=== PATIENT | female | born 1960 | race Two or more races ===

== ENCOUNTER 2024-07-06 09:07 | Emergency (ER) | payer OTHER, MEDICAID ==
[~2024-07-06] VITALS: Ht 182.9 cm; Wt 98.9 kg
[~2024-07-06 09:07] MED LIST: ASPI81CH43; ATOR10TA; LISI10TA34; METO25TA36
[2024-07-06 09:36] VITALS: BP 175/75; PULSE 72; RESP 16; TEMP 97.8; O2SAT 98
--- NOTE | 2024-07-06 10:08 | ED.PDOC ---
Musculoskeletal HPI Comments A 64 YEAR OLD FEMALE PRESENTS TO THE ED WITH COMPLAINT OF LEFT LEG PAIN AND SWELLING S/P FALL. PATIENT REPORTS THAT LAST WEDNESDAY, SHE HAS TRIPPED AND FELL FORWARD, INJURING HER LEFT LEG AND FOOT IN THE FALL. PATIENT RELAYS THAT SINCE THEN, SHE HAS EXPERIENCING SWELLING, REDNESS, AND PAIN TO HER LEFT LOWER EXTREMITY ALONG WITH NUMBNESS TO THE LEFT FOOT. PATIENT DENIES FEVER, CHILLS, SHORTNESS OF BREATH, CHEST PAIN, ABDOMINAL PAIN, NAUSEA, VOMITING, HEADACHE, OR OTHER COMPLAINTS. NO OTHER SYMPTOMS OR MODIFYING FACTORS AT THIS TIME. Chief Complaint: Lower Extremity Time Seen by MD: 09:47 Primary Care Provider: JASON Reviewed Notes: Nurses Notes, Medications, Allergies Allergies: Coded Allergies: NO KNOWN ALLERGIES (Unverified , 02/25/12) Home Meds Active Scripts Naproxen (Naproxen) 500 Mg Tab, 500 MG PO BID, #30 TAB Prov:WYATT LINDER 07/06/24 Cephalexin Monohydrate (Cephalexin) 500 Mg Cap, 1 CAP PO QID, #40 CAP Prov:WYATT LINDER 07/06/24 Reported Medications Atorvastatin Calcium (Lipitor) 10 Mg Tab, DAILY 02/25/12 Aspirin (Asa) 81 Mg Ch, DAILY 02/25/12 Metoprolol Succinate (Toprol Xl) 25 Mg Tab, DAILY 02/25/12 Lisinopril (Lisinopril) 10 Mg Tab, DAILY 02/25/12 Information Source: Patient Mode of Arrival: Ambulatory Location: Left Extremity Location: Leg Timing: Weeks Prehospital treatment: None Severity: Moderate Able to Move Extremity: Yes Bear Weight: Fully Pain: Moderate Mechanism: Spontaneous Circumstances: Fall Onset of Symptoms: After Trauma Symptoms: Swelling, Pain, Erythema DVT Risk Factors: NONE Last Tetanus: UTD, Unknown Associated signs and symptoms: Ankle pain, Leg pain, Foot pain Past Medical History PAST MEDICAL HISTORY: HTN Surgical History: Hysterectomy METHODS ANALYST DATA PROCESSING History: No Pertinent METHODS ANALYST DATA PROCESSING History Family History Family History: No family hx of Cancer, No family hx of DM Social History Smoker: Non-Smoker Alcohol: Denies ETOH Use Drugs: Denies Drug Use Lives In: Home Constitutional: denies: chills, diaphoresis, fatigue, fever, malaise, sweats, weakness, others EENTM: denies: blurred vision, double vision, ear bleeding, ear discharge, ear drainage, ear pain, ear ringing, eye pain, eye redness, hearing loss, mouth pain, mouth swelling, nasal discharge, nose bleeding, nose congestion, nose pain, photophobia, tearing, throat pain, throat swelling, voice changes, others Respiratory: denies: cough, hemoptysis, orthopnea, SOB at rest, shortness of breath, SOB with excertion, stridor, wheezing, others Cardiovascular: reports: edema; denies: chest pain, dizzy spells, diaphoresis, Dyspnea on exertion, irregular heart beat, left arm pain, lightheadedness, palpitations, PND, syncope, others Gastrointestinal: denies: abdomen distended, abdominal pain, blood streaked bowels, constipated, diarrhea, dysphagia, difficulty swallowing, hematemesis, melena, nausea, poor appetite, poor fluid intake, rectal bleeding, rectal pain, vomiting, others Genitourinary: denies: abnormal vagina bleeding, burning, dyspareunia, dysuria, flank pain, frequency, hematuria, incontinence, pain, , vagina discharge, urgency, others Neurological: denies: dizziness, fainting, headache, left sided numbness, left sided weakness, numbness, paresthesia, pre-existing deficit, right sided numbness, right sided weakness, seizure, speech problems, tingling, tremors, weakness, others Musculoskeletal: reports: joint pain, joint swelling, muscle pain; denies: back pain, gout, muscle stiffness, neck pain, others Integumetry: reports: bruises (LEFT POSTERIOR LOWER LEG ), lumps (AND REDNESS LEFT ANTERIOR LOWER LEG ), others (LEFT LEG PAIN AND CONTUSION); denies: change in color, change in hair/nails, dryness, laceration, lesions, rash, wounds Allergic/Immunocompromised: denies: Difficulty Healing, Frequent Infections, Hives, Itching, others Hematologic/Lymphatic: denies: anemia, blood clots, easy bleeding, easy bruising, swollen glands, others Endocrine: denies: excessive hunger, excessive sweating, excessive thirst, excessive urination, flushing, intolerance to cold, intolerance to heat, unexplained weight gain, unexplained weight loss, others Psychiatric: denies: anxiety, bipolar disorder, depression, hopeless, panic disorder, schizophrenia, sleepless, suicidal, others All Other Systems: Reviewed and Negative Physical Exam General Appearance: No Apparent Distress, Obese HEENT: Normal ENT Inspection, PERRL/EOMI Neck: Full Range of Motion, Non-Tender, Normal, Normal Inspection Respiratory: Chest Non-Tender, Lungs Clear, No Accessory Muscle Use, No Respiratory Distress, Normal Breath Sounds Cardiovascular: No Edema, No JVD, No Murmur, No Gallop, Normal Peripheral Pulses, Regular Rate/Rhythm Breast Exam: Deferred Gastrointestinal: No Organomegaly, Non Tender, No Pulsatile Mass, Normal Bowel Sounds, Soft Genitalia: Deferred Pelvic: Deferred Rectal: Deferred Extremities: No calf tenderness, Normal capillary refill, Normal range of motion, No pedal edema, Swelling (AND CONTUSION ON LEFT POSTERIOR LOWER LEG, NO BONY TENDERNESS AND DEFORMITY. ), Tender (WITH MILD REDNESS AND BUMP ON LEFT ANTERIOR LOWER LEG, HEMATOMA VS SOFT TISSUE INFECTION. ), Other (TENDERNESS AND SWELLING ON LEFT ANKLE, NO BONY TENDERNESS AND DEFORMITY. ) Musculoskeletal : Apperance: Normal Neurologic: Alert, teletypewriter operator II-XII nml as Tested, No Motor Deficits, Normal Affect, Normal Mood, No Sensory Deficits Cerebellar Function: Normal Reflexes: Normal Skin: Bruises (LEFT POSTERIOR LOWER LEG WITH SWELLING. ), Dry, Warm, Other (LOCALIZED REDNESS AND SWELLING ON LEFT LOWER ANTERIOR LOWER LEG, SUSPECT SOFT TISSUE INFECTION VS HEMATOMA. ) Peripheral Pulses: 2+ carotid (R), 2+ carotid (L), 2+ dorsalis pedis (R), 2+ dorsalis pedis (L) Lymphatic: No Adenopathy Was a procedure done? Was a procedure done?: No Differential Diagnosis EXT Differential Diagnosis: Deep Vein Thrombosis, Sprain, Contusion, Strain, Bursitis X-Ray, Labs, Meds, VS Vital Signs Date Time Temp Pulse Resp B/P (MAP) Pulse Ox O2 Delivery O2 Flow Rate FiO2 07/06/24 09:36 97.8 72 16 175/75 (108) 98 97.8 07/06/24 09:36 72 16 98 Room Air 07/06/24 09:27 97.8 72 16 175/75 (108) 98 LT LOWER DVT: FINDINGS: This examination demonstrates normal compression, augmentation, and phasic flow of the left lower extremity. No evidence for echogenic thrombus within the left common femoral, femoral, and popliteal veins. The calf veins demonstrated normal compression and color flow. IMPRESSION: There is no evidence for DVT in the left lower extremity. LEFT FOOT XR: FINDINGS: No acute fracture or dislocation. Small plantar calcane al spur. Mild 2 moderate diffuse soft tissue swelling. IMPRESSION: 1. No evidence of acute bony abnormality. 2. Additional findings as described above. LT ANKLE XR: FINDINGS: No acute fracture or dislocation. Talar dome is smooth. No widening at the ankle mortise. Small plantar calcaneal spur. Moderate diffuse soft tissue swelling around the ankle. IMPRESSION: 1. No evidence of acute bony abnormality. 2. Moderate soft tissue swelling around the ankle. X-Ray, Labs, Meds, VS Comment IMAGING ORDERED: LEFT FOOT XR, LEFT ANKLE XR, LEFT LOWER EXT US REVIEWED AND INTERPRETED RESULTS: INDEPENDENT HISTORIANS: NONE DISCUSSED TREATMENT AND RESULTS WITH MEDICAL PERSONNEL. I HAVE DISCUSSED IMAGING AND LAB RESULTS WITH PATIENT AND HAVE INSTRUCTED THEM TO FOLLOW UP WITH THEIR PCP IN 1-2 DAYS. THE PATIENT FULLY UNDERSTANDS THEIR RESULTS AND ARE AWARE THEY NEED TO FOLLOW UP WITH THEIR PCP FOR FURTHER EVALUATION IF THEIR SYMPTOMS PERSIST. TREATMENT: ROCEPHIN 1G IM Images Reviewed?: Images reviewed and evaluated by me Time of 1ST Reevaluation: 10:37 Reevaluation 1ST: Improved Patient Education/Counseling: Diagnosis, Treatment, Need For Follow Up Family Education/Counseling: Diagnosis, Treatment, Need For Follow Up Medical Screening: No EMC Exist At This Time Departure 1 Departure Time of Disposition: 10:50 Impression: Primary Impression: Contusion of left lower extremity Qualified Codes: S80.12XA - Contusion of left lower leg, initial encounter Additional Impressions: Sprain of left ankle Qualified Codes: S93.402A - Sprain of unspecified ligament of left ankle, initial encounter Suspected soft tissue infection Disposition: HOME / SELF CARE / HOMELESS Condition: Stable Additional Instructions: FOLLOW-UP WITH PCP IN 1 TO 2 DAYS. TAKE MEDICATIONS PRESCRIBED. RETURN TO ED FOR ANY NEW OR WORSENING SYMPTOMS. e-Prescriptions Naproxen (Naproxen) 500 Mg Tab 500 MG PO BID, #30 TAB Prov: WYATT LINDER 07/06/24 Cephalexin Monohydrate (Cephalexin) 500 Mg Cap 1 CAP PO QID, #40 CAP Prov: WYATT LINDER 07/06/24 Discharged With: Self Critical Care Note Critical Care Time?: No Stability Stability form required: No Heart Score Heart Score: Heart Score Response (Comments) Value History N/A 0 EKG N/A 0 Age N/A 0 Risk Factors N/A 0 Troponin N/A 0 Total 0 I personally scribed for WYATT LINDER ([email or web address]) on 07/06/24 at 10:07. Electronically submitted by Kleber Hale ([email or web address]). I personally scribed for WYATT LINDER ([email or web address]) on 07/06/24 at 10:28. Electronically submitted by Kleber Hale ([email or web address]). I personally scribed for WYATT LINDER ([email or web address]) on 07/06/24 at 10:28. Electronically submitted by Kleber Hale ([email or web address]). WYATT LINDER Jul 06, 2024 10:07
--- NOTE | 2024-07-06 10:08 | DVH ---
CLINICAL INFORMATION: 64 years old, Female; fall injury. TECHNIQUE: 3 views of the left ankle were obtained. COMPARISON: None FINDINGS: No acute fracture or dislocation. Talar dome is smooth. No widening at the ankle mortise. Small plantar calcaneal spur. Moderate diffuse soft tissue swelling around the ankle. IMPRESSION: 1. No evidence of acute bony abnormality. 2. Moderate soft tissue swelling around the ankle.
--- NOTE | 2024-07-06 10:10 | DVH ---
CLINICAL INFORMATION: 64 years old, Female; fall injury. TECHNIQUE: 3 views of the left foot were obtained. COMPARISON: None FINDINGS: No acute fracture or dislocation. Small plantar calcaneal spur. Mild 2 moderate diffuse sof t tissue swelling. IMPRESSION: 1. No evidence of acute bony abnormality. 2. Additional findings as described above.
--- NOTE | 2024-07-06 10:15 | DVH ---
CLINICAL HISTORY: Swelling and contusion of left lower leg post fall injury. Left lower extremity madelin n and swelling. COMPARISON: None TECHNIQUE: Compression evaluation and color doppler evaluation of the deep veins of the left lower ex tremity was performed. Evaluation for augmentation and flow characteristics with doppler pulse wave i maging was performed. FINDINGS: This examination demonstrates normal compression, augmentation, and phasic flow of the left lower extremity. No evidence for echogenic thrombus within the left common femoral, femoral, and pop liteal veins. The calf veins demonstrated normal compression and color flow. IMPRESSION: There is no evidence for DVT in the left lower extremity.
[2024-07-06] MEDS ORDERED: NAPR-746 PO (10:29)
[2024-07-06] MEDS ORDERED: CEPH500C PO (10:29)
[2024-07-06] MEDS: cefTRIAXone SOD 1,000 MG VL IM ONE (10:42)
== END 2024-07-06 10:48 | disposition home or self-care (01) ==
LOC: ER 09:07
DX: S93.402A Sprain of unspecified ligament of left ankle, initial encounter (principal); S80.12XA Contusion of left lower leg, initial encounter; I10 Essential (primary) hypertension; Z79.82 Long term (current) use of aspirin; Z79.899 Other long term (current) drug therapy; Z90.710 Acquired absence of both cervix and uterus; W18.09XA Striking against other object with subsequent fall, initial encounter; Y93.89 Activity, other specified; Y92.89 Other specified places as the place of occurrence of the external cause; Y99.8 Other external cause status
CPT/HCPCS: 73610; 73630; 93971; 96372; 99285; J0696